=== PATIENT | male | born 1970 | race Caucasian/White ===

== ENCOUNTER 2024-05-27 21:31 | Emergency (ER) | payer BC ==
[2024-05-27 21:58] LABS: BASOPHILS ABSOLUTE AUTO 0.07 K/uL (0.00-0.20); BASOPHILS PERCENT AUTO 0.6 % (0.0-1.0); EOSINOPHILS ABSOLUTE AUTO 0.71 K/uL (0.00-0.45); EOSINOPHILS PERCENT AUTO 6.4 % (0.0-6.0); HEMATOCRIT 38.7 % (42.0-52.0); HEMOGLOBIN 13.3 g/dL (14.0-18.0); IMMATURE GRAN ABSOLUTE AUTO 0.09 K/uL (0.00-0.05); IMMATURE GRAN PERCENT AUTO 0.8 % (0.0-0.4); LYMPHOCYTES ABSOLUTE AUTO 3.17 K/uL (1.00-4.80); LYMPHOCYTES PERCENT AUTO 28.5 % (24.0-44.0); MEAN CORPUSCULAR HGB CONC 34.4 g/dL (32.0-36.0); MEAN CORPUSCULAR VOLUME 93.3 fL (83.0-99.0); MEAN PLATELET VOLUME 10.4 fL (9.4-12.4); MONOCYTES ABSOLUTE AUTO 0.88 K/uL (0.00-0.80); MONOCYTES PERCENT AUTO 7.9 % (0.0-8.0); NEUTROPHILS ABSOLUTE AUTO 6.22 K/uL (1.80-7.70); NEUTROPHILS PERCENT AUTO 55.8 % (41.0-71.0); PLATELET COUNT,PLT 307 K/uL (150-400); RED BLOOD CELL COUNT 4.15 M/uL (4.52-5.90); WHITE BLOOD CELL COUNT,WBC 11.14 K/uL (3.9-11.3)
[2024-05-27] MEDS: Sodium Chloride 0.9% 1,000 ML IV ONE (21:58)
[2024-05-27] MEDS: Morphine 4 MG/ML Syringe IVPUSH STA (21:58)
[2024-05-27] MEDS: Sodium Chloride 0.9% 2.5 ML Syringe FLUSH PRN (21:59)
[2024-05-27] MEDS: Sodium Chloride 0.9% 10 ML Syringe FLUSH PRN (22:00)
[2024-05-27 22:07] LABS: INR 1.06 (0.86-1.11); PTT,PARTIAL THROMBOPLSTIN TIME 22.7 SEC (23.9-30.7)
[2024-05-27 22:19] LABS: A/G RATIO 1.5 (0.9-1.6); ALANINE AMINOTRANSFERASE,ALT 36 IU/L (14-63); ALKALINE PHOSPHATASE 78 U/L (46-116); ASPARTATE AMNIOTRANSFERASE,AST 36 IU/L (15-37); BILIRUBIN TOTAL 0.3 mg/dL (0.2-1.0); BLOOD UREA NITROGEN,BUN 13 mg/dL (7.0-18.0); CALCIUM 8.8 mg/dL (8.5-10.1); CARBON DIOXIDE,CO2 30.1 mmol/L (21.0-32.0); CHLORIDE,CL 103 mmol/L (98-107); CREATININE 1.4 mg/dL (0.8-1.3); ESTIMATED GFR 60 mL/min (>60); GLUCOSE RANDOM 140 mg/dL (74-106); POTASSIUM,K 3.5 mmol/L (3.5-5.1); PROTEIN TOTAL,TP 6.6 g/dL (6.4-8.2); SODIUM,NA 141 mmol/L (136-148)
[2024-05-28] MEDS: Sodium Chloride 0.9% 1,000 ML IV ONE (00:43)
[2024-05-28] MEDS: Diazepam 5 MG Tab PO STA (00:48)
[2024-05-28] MEDS: Ketorolac 30 MG/ML SDV IVPUSH ONE (00:48)
[2024-05-28] MEDS: Acetaminophen 500 MG Tab PO ONE (00:48)
[2024-05-28] MEDS: oxyCODONE 5 MG Tab PO STA (03:11)
[2024-05-28] MEDS: Lactated Ringers 1,000 ML IV STA (03:11)
[2024-05-28 05:04] LABS: APPEARANCE,URINE CLEAR; BILIRUBIN,URINE NEGATIVE (NEGATIVE); COLOR,URINE YELLOW; GLUCOSE,URINE NEGATIVE (NEGATIVE); KETONES,URINE NEGATIVE (NEGATIVE); LEUKOCYTE ESTERASE,URINE NEGATIVE (NEGATIVE); NITRITE,URINE NEGATIVE (NEGATIVE); OCCULT BLOOD,URINE NEGATIVE (NEGATIVE); PROTEIN,URINE NEGATIVE (NEGATIVE); UROBILINOGEN,URINE 0.2 EU/dL (<2.0)
== END 2024-05-28 05:55 | disposition home or self-care (01) ==
LOC: MW.ED 21:31
DX: S20.229A Contusion of unspecified back wall of thorax, initial encounter (principal); N17.9 Acute kidney failure, unspecified; E86.0 Dehydration; V86.56XA Driver of dirt bike or motor/cross bike injured in nontraffic accident, initial encounter
CPT/HCPCS: 36415; 70450; 71250; 72125; 74176; 80053; 81003; 84484; 85025; 85610; 85730; 93005; 96361; 96374; 96375; 99284; A9270; J1885; J2270; J3490; J7030; J7120; 72128-26; 72131-26; 93010; 99285